=== PATIENT | male | born 1970 | race Caucasian/White ===

== ENCOUNTER 2018-02-26 09:31 | Emergency (ER) | payer MEDICARE, MEDICAID ==
[~2018-02-26] VITALS: Ht 180.3 cm; Wt 109.1 kg
[2018-02-26 10:13] VITALS: BP 166/76
== END 2018-02-26 10:15 | disposition home or self-care (01) ==
LOC: ER 09:32
DX: R05 Cough (principal)
CPT/HCPCS: 99283

== ENCOUNTER 2023-08-06 09:43 | Emergency (ER) | payer MEDICARE, MEDICAID ==
[~2023-08-06] VITALS: Ht 180.3 cm; Wt 118.7 kg
[2023-08-06] MEDS ORDERED: ketorolac trometh inj. 60 MG/2 ML VIAL IM ONE (11:30)
[2023-08-06] MEDS ORDERED: ALBU8HFA INH (11:35)
[2023-08-06] MEDS ORDERED: PROM118S5 PO (11:35)
[2023-08-06] MEDS ORDERED: AZIT250T PO (11:35)
[2023-08-06] MEDS ORDERED: PRED20TA PO (11:35)
[2023-08-06] MEDS: ketorolac tromethamine 15mg/ml inj. IM ONE (11:55)
[2023-08-06] MEDS: dexamethasone sod phosphate 10mg/ml inj IM STA (11:55)
[2023-08-06 12:11] VITALS: BP 150/88; PULSE 82; RESP 16; TEMP 99; O2SAT 99
== END 2023-08-06 12:11 | disposition home or self-care (01) ==
LOC: ER 09:43
DX: R07.81 Pleurodynia (principal); J06.9 Acute upper respiratory infection, unspecified; Z79.2 Long term (current) use of antibiotics; Z79.899 Other long term (current) drug therapy
CPT/HCPCS: 71101; 96372; 99284; J1100; J1885

== ENCOUNTER 2024-01-16 11:00 | Emergency (ER) | payer MEDICARE, MEDICAID ==
[~2024-01-16] VITALS: Ht 180.3 cm; Wt 121.8 kg
[~2024-01-16 11:00] MED LIST: AZIT250T PO
[2024-01-16] MEDS: ketorolac trometh 30MG/ML vial 30 MG/ML VIAL IM ONE (11:46)
[2024-01-16 11:48] VITALS: BP 134/80; PULSE 85; RESP 18; TEMP 98; O2SAT 98
== END 2024-01-16 11:52 | disposition home or self-care (01) ==
LOC: ER 11:01
DX: M25.561 Pain in right knee (principal); Z79.2 Long term (current) use of antibiotics
CPT/HCPCS: 73564; 96372; 99283; J1885

== ENCOUNTER 2024-05-20 10:42 | Outpatient (CLI) | payer MEDICARE, MEDICAID | END 2024-05-20 23:59 | disposition home or self-care (01) | LOC: RAD 10:42 | PROVIDERS: ATTEND Nurse Practitioner Family | DX: M25.511 Pain in right shoulder (principal) | CPT/HCPCS: 73030 ==